=== PATIENT | female | born 1980 | race Caucasian/White ===

== ENCOUNTER 2017-05-14 15:36 | Emergency (ER) | payer BC ==
[~2017-05-14] VITALS: Ht 160 cm; Wt 90.7 kg
[2017-05-14 15:55] VITALS: BP_SYST 157
[2017-05-14] MEDS ORDERED: KETOROLAC TROMETHAMINE 60 MG/2 ML VIAL IM ONE (16:30)
[2017-05-14 16:58] LABS: BILIRUBIN,URINE NEGATIVE (NEGATIVE); BLOOD, URINE NEGATIVE (NEGATIVE); CLARITY/URINE CLEAR (CLEAR); KETONES,URINE NEGATIVE (NEGATIVE); LEUKOCYTE ESTERASE ,URINE NEGATIVE (NEGATIVE); PH,URINE 5.5 (5.0-8.0); PROTEIN URINE NEGATIVE (NEGATIVE)
[2017-05-14 17:09] LABS: COLOR,URINE ORANGE (YELLOW); GLUCOSE,URINE NEGATIVE (NEGATIVE); NITRITE, URINE NEGATIVE (NEGATIVE)
[2017-05-14 17:40] VITALS: BP_SYST 146
== END 2017-05-14 17:40 | disposition home or self-care (01) ==
LOC: SED 15:36
DX: M54.5 Low back pain (principal); R03.0 Elevated blood-pressure reading, without diagnosis of hypertension; J45.909 Unspecified asthma, uncomplicated
CPT/HCPCS: 72100; 81003; 81025; 96372; 99285; J1885

== ENCOUNTER 2022-09-09 22:06 | Emergency (ER) | payer BC ==
[~2022-09-09] VITALS: Ht 157.5 cm; Wt 83.9 kg
[2022-09-09 22:17] VITALS: BP_SYST 150
--- NOTE | 2022-09-09 22:23 | NUR ---
Patient triaged and placed in waiting room. VSS and patient appears in no acute distress at this time. Accompanied by FAMILY, awaiting available bed, and MD notified of need for MSE.
[2022-09-09] MEDS ORDERED: KETOROLAC TROMETHAMINE 30 MG VIAL IVP ONE (23:00)
[2022-09-09] MEDS ORDERED: NACL 0.9% 1,000 ML IV ONE (23:00)
--- NOTE | 2022-09-09 23:05 | NUR ---
Patient to ER bed 06 to gown for evaluation. Side rails up. Report given to PORFIRIO CORADO.
[2022-09-09 23:16] LABS: BILIRUBIN,URINE NEGATIVE (NEGATIVE); CLARITY/URINE CLEAR (CLEAR); COLOR,URINE YELLOW (YELLOW); GLUCOSE,URINE NEGATIVE (NEGATIVE); KETONES,URINE 3+ (NEGATIVE); LEUKOCYTE ESTERASE ,URINE NEGATIVE (NEGATIVE); NITRITE, URINE NEGATIVE (NEGATIVE); PROTEIN URINE NEGATIVE (NEGATIVE); UROBILINOGEN,URINE 0.2 (0.2-1.0)
[2022-09-09 23:19] LABS: BLOOD, URINE TRACE (NEGATIVE)
[2022-09-09 23:31] LABS: BACTERIA,URINE FEW /HPF (None Seen); WBC,URINE 0-3 /HPF (0-3)
--- NOTE | 2022-09-09 23:31 | NUR ---
Patient resting in bed with son at bedside, informed of plan of care at this time. #24 established in right thumb, blood collected and sent to lab. No s/s of any distress or vomiting noted at this time.
[2022-09-09 23:41] LABS: BASOPHILS # (AUTO) 0.1 K/uL (0.0-0.2); BASOPHILS % (AUTO) 0.5 % (0.0-2.0); EOSINOPHILS % (AUTO) 0.1 % (0.0-4.0); HEMATOCRIT 40.2 % (36-48); HEMOGLOBIN 13.5 g/dL (12.0-16.0); MEAN CORPUSCULAR HEMOGLOBIN 31 pg (27-31); MEAN CORPUSCULAR HGB CONC 34 % (32-36); MEAN CORPUSCULAR VOLUME 93 fL (79.0-98.0); MONOCYTES # (AUTO) 0.3 K/uL (0.0-1.0); MONOCYTES % (AUTO) 2.7 % (1.7-9.3); NEUTROPHILS # (AUTO) 10.6 K/uL (1.8-7.7); NEUTROPHILS % (AUTO) 88.7 % (40.0-70.0); PLATELET COUNT (AUTO) 260 K/uL (130-430); RED BLOOD CELL COUNT(AUTO) 4.33 MIL/uL (4.2-6.2); RED CELL DISTRIBUTION WIDTH 13.1 % (9.0-15.0); WHITE BLOOD COUNT (AUTO) 11.9 K/uL (4.8-10.8)
--- NOTE | 2022-09-09 23:43 | NUR ---
Patient off unit to US.
[2022-09-09 23:48] LABS: CALCIUM 8.8 mg/dL (8.4-11.0); CREATININE 0.71 mg/dL (0.55-1.30)
[2022-09-09 23:52] LABS: ALBUMIN 3.9 g/dL (3.4-4.8); TOTAL BILIRUBIN 0.6 mg/dL (0.0-1.0)
--- NOTE | 2022-09-10 | NUR ---
Urine negative.Patient has returned to room and medicated as per order.
[2022-09-10] MEDS ORDERED: DICY10SO PO (00:35)
--- NOTE | 2022-09-10 01:06 | NUR ---
HL removed by DAVID WANG.
== END 2022-09-10 01:05 | disposition home or self-care (01) ==
LOC: SED 22:06
DX: B34.9 Viral infection, unspecified (principal); R11.2 Nausea with vomiting, unspecified; R10.9 Unspecified abdominal pain; J45.909 Unspecified asthma, uncomplicated; Z79.899 Other long term (current) drug therapy
CPT/HCPCS: 99285; 76700; 96361; 80053; 81000; 82150; 83690; 85025; 36415; 96374; J1885; J7030